=== PATIENT | male | born 1995 | race Caucasian/White ===

== ENCOUNTER 2017-10-15 02:18 | Inpatient (IN) | payer OTHER ==
[~2017-10-15] VITALS: Ht 180.3 cm; Wt 81.6 kg
[2017-10-15] MEDS ORDERED: MAALOX/HYOSCYAMINE/LIDOCAINE 45 ML BTL ONE (02:51)
[2017-10-15] MEDS ORDERED: FAMOTIDINE 20 MG TABLET ONE (02:51)
[2017-10-15] MEDS ORDERED: ONDANSETRON ODT 4 MG ONE (02:51)
[2017-10-15] MEDS ORDERED: ONDANSETRON ODT 8 MG ONE (02:56)
[2017-10-15] MEDS ORDERED: ONDANSETRON ODT 8 MG PO ONE (03:00)
[2017-10-15] MEDS ORDERED: FAMOTIDINE 20 MG TABLET PO ONE (03:00)
[2017-10-15] MEDS ORDERED: MAALOX/HYOSCYAMINE/LIDOCAINE 45 ML BTL PO ONE (03:00)
[2017-10-15 03:27] LABS: BASOPHILS # (AUTO) 0.03 x10^3/uL (0-0.1); BASOPHILS % (AUTO) 0 % (0-1); EOSINOPHILS # (AUTO) 0.17 x10^3/uL (0-0.4); EOSINOPHILS % (AUTO) 2 % (1-7); LYMPHOCYTES # (AUTO) 0.87 x10^3/uL (1-3.4); LYMPHOCYTES % (AUTO) 8 % (22-44); MD NO; MEAN CORPUSCULAR HEMOGLOBIN 27.8 pg (27.5-34.5); MEAN CORPUSCULAR HGB CONC 33.3 g/dL (33.2-36.2); MEAN CORPUSCULAR VOLUME 83.6 fL (81-97); MEAN PLATELET VOLUME 8.3 fL (7.4-10.4); MONOCYTES # (AUTO) 0.35 x10^3/uL (0.2-0.8); MONOCYTES % (AUTO) 3 % (2-9); NEUTROPHILS # (AUTO) 9.37 x10^3/uL (1.8-6.8); NEUTROPHILS % (AUTO) 87 % (42-75); PLATELET COUNT 274 x10^3/uL (130-400); RED BLOOD COUNT 5.74 x10^6/uL (4.38-5.82); RED CELL DISTRIBUTION WIDTH 16.1 % (9.4-14.8)
[2017-10-15 03:37] LABS: ALANINE AMINOTRANSFERASE 28 U/L (12-78); ALBUMIN 4.2 g/dL (3.4-5.0); ANION GAP 9 mmol/L (5-15); CALCIUM 8.9 mg/dL (8.5-10.1); CHLORIDE 108 mmol/L (98-107); CREATININE 0.99 mg/dL (0.7-1.3)
[2017-10-15 03:39] LABS: ALKALINE PHOSPHATASE 65 U/L (45-117); BILIRUBIN,TOTAL 0.2 mg/dL (0.2-1.0); TOTAL PROTEIN 7.6 g/dL (6.4-8.2)
[2017-10-15] MEDS ORDERED: OMNIPAQUE 350 MG/ML, 100ML BOTTLE ONE (04:27)
[2017-10-15 04:42] LABS: MICROSCOPIC NOT IND
[2017-10-15 04:44] LABS: CULTURE INDICATED? NO
[2017-10-15] MEDS ORDERED: SODIUM CHLORIDE FLUSH 10ML SYR IVF ONE (05:30)
[2017-10-15] MEDS ORDERED: SODIUM CHLORIDE 0.9% 1,000ML IVBOLUS ONE (05:30)
[2017-10-15] MEDS ORDERED: SODIUM CHLORIDE 0.9% 1,000 ML IV ONE (06:20)
[2017-10-15] MEDS ORDERED: SODIUM CHLORIDE FLUSH 10ML SYR IVF PRN (06:30)
[2017-10-15] MEDS ORDERED: ACETAMINOPHEN 325 MG TABLET PO PRN (07:00)
[2017-10-15] MEDS ORDERED: morphine SULFATE 10 MG/ML, 1ML IVPush PRN (07:00)
[2017-10-15] MEDS ORDERED: ONDANSETRON 2MG/ML, 2ML IVPush PRN (07:00)
[2017-10-15] MEDS ORDERED: LABETALOL 5MG/ML, 20ML IVPush PRN (07:00)
[2017-10-15 08:00] VITALS: BP 137/75
[2017-10-15] MEDS: NS + 20MEQ KCL 1,000 ML IV SCH ×2 (08:44→18:37)
[2017-10-15 12:20] VITALS: BP 132/70
[2017-10-15] MEDS ORDERED: BENZOCAINE 20% SPRAY 0.5ML TP ONE ×2 (12:30→20:00)
[2017-10-15] MEDS ORDERED: ONDANSETRON ODT 4 MG PO PRN (13:00)
[2017-10-15 14:21] LABS: HCT (SEDRATE) 46.9 % (39.2-51.8)
[2017-10-15] MEDS: methylPREDNISolone SOD SUCC 40 MG/ML IV SCH (16:57)
[2017-10-15] MEDS: ENOXAPARIN 40 MG/0.4 ML SQ SCH (16:57)
[2017-10-15 19:22] VITALS: BP 112/66
[2017-10-15] MEDS ORDERED: DIPHENHYDRAMINE 50 MG/ML, 1ML IVPush ONE (22:00)
[2017-10-16 02:03] VITALS: BP 106/67
[2017-10-16] MEDS: NS + 20MEQ KCL 1,000 ML IV SCH ×2 (05:04→14:17)
[2017-10-16] MEDS: methylPREDNISolone SOD SUCC 40 MG/ML IV SCH ×2 (05:04→16:24)
[2017-10-16 05:24] LABS: ALANINE AMINOTRANSFERASE 21 U/L (12-78); ALBUMIN 3.7 g/dL (3.4-5.0); ANION GAP 10 mmol/L (5-15); CALCIUM 8.2 mg/dL (8.5-10.1); CHLORIDE 109 mmol/L (98-107); CREATININE 0.76 mg/dL (0.7-1.3)
[2017-10-16 05:26] LABS: ALKALINE PHOSPHATASE 59 U/L (45-117); BASOPHILS # (AUTO) 0.02 x10^3/uL (0-0.1); BASOPHILS % (AUTO) 0 % (0-1); BILIRUBIN,TOTAL 0.4 mg/dL (0.2-1.0); EOSINOPHILS # (AUTO) 0.02 x10^3/uL (0-0.4); EOSINOPHILS % (AUTO) 0 % (1-7); LYMPHOCYTES # (AUTO) 1.79 x10^3/uL (1-3.4); LYMPHOCYTES % (AUTO) 21 % (22-44); MD NO; MEAN CORPUSCULAR HGB CONC 33.2 g/dL (33.2-36.2); MEAN CORPUSCULAR VOLUME 84.5 fL (81-97); MEAN PLATELET VOLUME 8.2 fL (7.4-10.4); MONOCYTES # (AUTO) 0.72 x10^3/uL (0.2-0.8); MONOCYTES % (AUTO) 8 % (2-9); NEUTROPHILS # (AUTO) 5.98 x10^3/uL (1.8-6.8); NEUTROPHILS % (AUTO) 70 % (42-75); PLATELET COUNT 263 x10^3/uL (130-400); RED BLOOD COUNT 5.16 x10^6/uL (4.38-5.82); RED CELL DISTRIBUTION WIDTH 16.5 % (9.4-14.8); TOTAL PROTEIN 6.7 g/dL (6.4-8.2)
[2017-10-16 06:59] VITALS: BP 113/65
[2017-10-16 15:05] VITALS: BP 113/69
[2017-10-16] MEDS: ENOXAPARIN 40 MG/0.4 ML SQ SCH (16:24)
[2017-10-16 19:00] VITALS: BP 119/68
[2017-10-17 03:13] VITALS: BP 104/62
[2017-10-17] MEDS: NS + 20MEQ KCL 1,000 ML IV SCH ×2 (04:33→17:07)
[2017-10-17] MEDS: methylPREDNISolone SOD SUCC 40 MG/ML IV SCH ×2 (04:33→17:07)
[2017-10-17 06:39] VITALS: BP 115/67
[2017-10-17 12:09] VITALS: BP 135/79
[2017-10-17] MEDS: ENOXAPARIN 40 MG/0.4 ML SQ SCH (17:08)
[2017-10-17 19:32] VITALS: BP 113/73
[2017-10-18 01:50] VITALS: BP 108/61
[2017-10-18] MEDS: methylPREDNISolone SOD SUCC 40 MG/ML IV SCH (04:22)
[2017-10-18] MEDS: NS + 20MEQ KCL 1,000 ML IV SCH (04:23)
[2017-10-18 06:38] VITALS: BP 129/84
[2017-10-18] MEDS ORDERED: PRED20TA PO (12:14)
== END 2017-10-18 13:15 | disposition home or self-care (01) | DRG 386 ==
LOC: ED 02:50 → EDIP 06:20 → 3NE 07:35
PROVIDERS: ADMIT Internal Medicine Pulmonary Disease; ATTEND Internal Medicine Pulmonary Disease
DX: K50.912 Crohn's disease, unspecified, with intestinal obstruction (principal); D72.829 Elevated white blood cell count, unspecified; F12.90 Cannabis use, unspecified, uncomplicated; R73.9 Hyperglycemia, unspecified; K52.9 Noninfective gastroenteritis and colitis, unspecified; R11.2 Nausea with vomiting, unspecified; Z80.0 Family history of malignant neoplasm of digestive organs
CPT/HCPCS: 36415; 74018; 74177; 76700; 80053; 80307; 81003; 82657; 83690; 85025; 85651; 86140; 86308; 86480; 86704; 86706; 87340; 99285; J1650; J3480; Q0162; Q9967; J1200; J2920